=== PATIENT | male | born 1965 | race Caucasian/White ===

== ENCOUNTER 2020-09-10 17:45 | Emergency (ER) | payer MEDICAID, SELFPAY ==
[2020-09-10 19:26] VITALS: BP 126/58; PULSE 82; RESP 22; TEMP 36.8; O2SAT 96; BMI 29.6
--- NOTE | 2020-09-10 19:39 | ED.URI ---
HPI - URI/Sore Throat General Chief Complaint: Upper Respiratory Symptoms Stated Complaint: SOB Time Seen by Provider: 09/10/20 23:41 Source: patient Mode of arrival: ambulatory Limitations: no limitations History of Present Illness HPI Narrative: 55-year-old male currently homeless living in a residential past history of IV drug use on methadone presents with 1 week of upper respiratory symptoms, shortness of breath, productive cough with yellow sputum, intermittent fevers and chills and malaise. He has had a COVID test 2 days ago which was negative. MD elicited complaint: fever, cough and nasal congestion Onset (ago): week(s) (1) Consistency: constant Severity: moderate Description of mucous: yellow Able to tolerate fluids by mouth: Yes Exacerbating factors: exertion and deep breaths Relieving factors: nothing Context: sick contacts Associated symptoms: fever, chills, myalgias, nasal congestion, cough and shortness of breath Treatments prior to arrival: none Related Data Home Medications Medication Instructions Recorded Confirmed ProAir HFA INHALATION BID MDD 2 puffs 09/11/20 albuterol inhaler TID 09/11/20 methadone 40 mg PO 09/11/20 Previous Rx's Medication Instructions Recorded azithromycin [Zithromax Z-Russ] See Rx Instructions .ROUTE 09/11/20 .COMPLEX #6 tab cefuroxime axetil 500 mg PO Q12H 7 Days #14 tab 09/11/20 dexamethasone 6 mg PO DAILY 10 Days #10 tab 09/11/20 Allergies Allergy/AdvReac Type Severity Reaction Status Date / Time No Known Allergies Allergy Unverified 05/01/20 15:09 [No Known Allergies*] Review of Systems Review of Systems: Constitutional: positive Fever, positive Chills, positive fatigue, positive Malaise ENT/Mouth: positive sore throat, positive runny nose Eyes: No Discharge Cardiovascular: No Chest Pain, positive SOB Respiratory: Positive Cough, positive thick yellow Sputum, positive Wheezing, No Smoke Exposure, No Dyspnea Gastrointestinal: No Nausea, No Vomiting, No Diarrhea Genitourinary: no irregular bleeding, No Dysuria, No Urinary Frequency, No Hematuria, No Urinary Incontinence, No Urgency, No Flank Pain, Musculoskeletal: positive Myalgia Skin: No rash Neuro: No Headache Yes all other systems are reviewed and are negative PMFSH Past Medical History Attestation statement: The following information was validated with the patient. Source: old records reviewed Medical History (Updated 09/11/20 @ 01:17 by Moraima Reid NP) Diabetes Social History Social History Alcohol intake: never Smoking Status: Current every day smoker Smoked in Last 30 Days: Yes Use of substances other than those prescribed or required for medical reasons: Yes Substance Use Type: Heroin Last Used Substance: Days (ago) Any prior treatment program specific to substance use: Yes (methadone last dose 09/09/20) Advance Directives: No Advance Directives Information Provided: Yes Physical Exam Vital Signs: Vital Signs: Last Vital Signs Temp 98.8 F 09/11/20 00:00 Pulse 64 09/11/20 01:13 Resp 18 09/11/20 00:00 BP 135/63 09/11/20 00:00 Pulse Ox 95 09/11/20 01:13 Body Mass Index 29.6 Appearance: Alert. Oriented X3. Moderate distress. Afebrile Eyes: Pupils equal, round and reactive to light. ENT: Pharynx normal. Neck: Normal inspection. Neck supple. CVS: Normal heart rate and rhythm. Pulses normal. Respiratory: Mild respiratory distress, tachypneic 26. Breath sounds coarse with expiratory wheezing Abdomen: Soft and nontender. Skin: Skin warm and mild diaphoresis,. Normal skin color. Normal skin turgor. Extremities: No lower extremity edema. Neuro: No motor deficit. No sensory deficit. Course Course Course Narrative: 55-year-old male residing in a residential past history of IV drug use on methadone presents with upper respiratory symptoms. COVID test on Tuesday was negative for acute findings, lung sounds coarse with expiratory wheezing, O2 sat 93% on room air, ambulatory pulse ox 90%. Plan of care is for chest x-ray, CBC, Chem 7, lactic, and cultures. COVID test pending. X-rays negative for acute findings. Patient hypoxic at 89% on room air, order for CT scan as chest x-ray is inconclusive. CT scan shows multiple infiltrates consistent with COVID-19. Nursing notes indicate that patient's O2 sat is 99% on room air, I disagree with this documentation as I have not seen any O2 sat above 95% for this patient. We will discharge patient home with antibiotics and steroids. Patient was advised to return if symptoms got worse. Patient verbalized understanding of and agrees to plan of care discharge home. He will treat himself as he is positive for COVID-19 even though the test was negative, CT scan indicates infiltrates consistent with COVID. MDM - URI/Sore Throat Differential Diagnosis Differential diagnosis: Likely upper respiratory infection, sinusitis, viral infection, bronchitis, influenza and pharyngitis Medical Records Attestation: I reviewed the patient's medical records. Lab Data Attestation: I reviewed the patient's lab results. Result diagrams: 09/10/20 21:00 09/10/20 21:00 Labs: Lab Results 09/10/20 09/10/20 09/10/20 Range/Units 20:33 21:00 21:00 WBC 11.3 H (4.8-10.8) X10*3/uL RBC 5.14 (4.60-5.80) X10*6/uL Hgb 14.2 (14.0-18.0) g/dl Hct 45.3 (42-52) % MCV 88.1 (80-98) fL MCH 27.6 (27.0-33.0) pg MCHC 31.3 (31.0-36.0) g/dl RDW 14.9 (11.0-16.0) % Plt Count 321 (160-400) X10*3/uL MPV 9.4 (9.4-12.4) fL Immature Gran % (Auto) 1.0 H (0.0-0.4) % Neut % (Auto) 70.8 (45-73) % Lymph % (Auto) 19.3 L (20-40) % [place] % (Auto) 8.2 (2-11) % Eos % (Auto) 0.6 (0-4) % Baso % (Auto) 0.1 (0-2) % Lymph # (Auto) 2.2 (1.2-4.9) X10*3/uL [place] # (Auto) 0.9 (0.1-1.2) X10*3/uL Eos # (Auto) 0.1 (0.0-0.4) X10*3/uL Baso # (Auto) 0.0 (0.0-0.2) X10*3/uL Abs Immat Gran (auto) 0.11 H (0.00-0.03) X10*3/uL Absolute Neuts (auto) 8.0 (2.0-8.3) X10*3/uL Absolute Nucleated RBC 0.000 (0.0-0.012) X10*3/uL Nucleated RBC % (auto) 0.0 (0.0-0.2) /100WBC PT 12.1 (10.8-13.0) SEC INR 1.0 (0.9-1.1) APTT 30.8 (24.1-38.0) SEC Sodium (135-145) mmol/L Potassium (3.3-5.1) mmol/l Chloride (96-108) mmol/L Carbon Dioxide (22-29) mmol/L Anion Gap (12-20) BUN (9-16) mg/dL Creatinine (0.5-1.4) mg/dL Estim Creat Clear Calc Estimated GFR Random Glucose (60-115) mg/dL Lactic Acid (0.5-2.0) mmol/L Calcium (8.4-10.2) mg/dL Magnesium (1.6-2.6) mg/dL Ferritin (20-250) ng/mL Total Bilirubin (0.0-1.0) mg/dL Direct Bilirubin (0.0-0.5) mg/dL AST (5-37) U/L ALT (0-40) U/L Alkaline Phosphatase (39-117) U/L Lactate Dehydrogenase (118-273) U/L Troponin I High Sens (<3.5-35.0) ng/L C-Reactive Protein (< or = 0.50) mg/dL Total Protein (6.5-8.0) g/dL Albumin (3.5-5.0) g/dL Lipase (8-78) U/L Procalcitonin ng/mL Coronavirus (PCR) NEGATIVE (Negative) Influenza Type A (PCR) NEGATIVE (Negative) Influenza Type B (PCR) NEGATIVE (Negative) RSV RNA Qual (PCR) NEGATIVE (Negative) 09/10/20 09/10/20 09/10/20 Range/Units 21:00 21:00 21:00 WBC (4.8-10.8) X10*3/uL RBC (4.60-5.80) X10*6/uL Hgb (14.0-18.0) g/dl Hct (42-52) % MCV (80-98) fL MCH (27.0-33.0) pg MCHC (31.0-36.0) g/dl RDW (11.0-16.0) % Plt Count (160-400) X10*3/uL MPV (9.4-12.4) fL Immature Gran % (Auto) (0.0-0.4) % Neut % (Auto) (45-73) % Lymph % (Auto) (20-40) % [place] % (Auto) (2-11) % Eos % (Auto) (0-4) % Baso % (Auto) (0-2) % Lymph # (Auto) (1.2-4.9) X10*3/uL [place] # (Auto) (0.1-1.2) X10*3/uL Eos # (Auto) (0.0-0.4) X10*3/uL Baso # (Auto) (0.0-0.2) X10*3/uL Abs Immat Gran (auto) (0.00-0.03) X10*3/uL Absolute Neuts (auto) (2.0-8.3) X10*3/uL Absolute Nucleated RBC (0.0-0.012) X10*3/uL Nucleated RBC % (auto) (0.0-0.2) /100WBC PT (10.8-13.0) SEC INR (0.9-1.1) APTT (24.1-38.0) SEC Sodium 137 (135-145) mmol/L Potassium 4.4 (3.3-5.1) mmol/l Chloride 97 (96-108) mmol/L Carbon Dioxide 29 (22-29) mmol/L Anion Gap 15 (12-20) BUN 22 H (9-16) mg/dL Creatinine 0.91 (0.5-1.4) mg/dL Estim Creat Clear Calc 87.6 Estimated GFR > 60 Random Glucose 106 (60-115) mg/dL Lactic Acid 1.2 (0.5-2.0) mmol/L Calcium 9.3 (8.4-10.2) mg/dL Magnesium 2.2 (1.6-2.6) mg/dL Ferritin (20-250) ng/mL Total Bilirubin 0.9 (0.0-1.0) mg/dL Direct Bilirubin 0.3 (0.0-0.5) mg/dL AST 15 (5-37) U/L ALT 26 (0-40) U/L Alkaline Phosphatase 81 (39-117) U/L Lactate Dehydrogenase 209 (118-273) U/L Troponin I High Sens 14.5 (<3.5-35.0) ng/L C-Reactive Protein 4.27 H (< or = 0.50) mg/dL Total Protein 7.3 (6.5-8.0) g/dL Albumin 4.0 (3.5-5.0) g/dL Lipase 13 (8-78) U/L Procalcitonin ng/mL Coronavirus (PCR) (Negative) Influenza Type A (PCR) (Negative) Influenza Type B (PCR) (Negative) RSV RNA Qual (PCR) (Negative) 09/10/20 09/10/20 Range/Units 21:00 21:00 WBC (4.8-10.8) X10*3/uL RBC (4.60-5.80) X10*6/uL Hgb (14.0-18.0) g/dl Hct (42-52) % MCV (80-98) fL MCH (27.0-33.0) pg MCHC (31.0-36.0) g/dl RDW (11.0-16.0) % Plt Count (160-400) X10*3/uL MPV (9.4-12.4) fL Immature Gran % (Auto) (0.0-0.4) % Neut % (Auto) (45-73) % Lymph % (Auto) (20-40) % [place] % (Auto) (2-11) % Eos % (Auto) (0-4) % Baso % (Auto) (0-2) % Lymph # (Auto) (1.2-4.9) X10*3/uL [place] # (Auto) (0.1-1.2) X10*3/uL Eos # (Auto) (0.0-0.4) X10*3/uL Baso # (Auto) (0.0-0.2) X10*3/uL Abs Immat Gran (auto) (0.00-0.03) X10*3/uL Absolute Neuts (auto) (2.0-8.3) X10*3/uL Absolute Nucleated RBC (0.0-0.012) X10*3/uL Nucleated RBC % (auto) (0.0-0.2) /100WBC PT (10.8-13.0) SEC INR (0.9-1.1) APTT (24.1-38.0) SEC Sodium (135-145) mmol/L Potassium (3.3-5.1) mmol/l Chloride (96-108) mmol/L Carbon Dioxide (22-29) mmol/L Anion Gap (12-20) BUN (9-16) mg/dL Creatinine (0.5-1.4) mg/dL Estim Creat Clear Calc Estimated GFR Random Glucose (60-115) mg/dL Lactic Acid (0.5-2.0) mmol/L Calcium (8.4-10.2) mg/dL Magnesium (1.6-2.6) mg/dL Ferritin 175 (20-250) ng/mL Total Bilirubin (0.0-1.0) mg/dL Direct Bilirubin (0.0-0.5) mg/dL AST (5-37) U/L ALT (0-40) U/L Alkaline Phosphatase (39-117) U/L Lactate Dehydrogenase (118-273) U/L Troponin I High Sens (<3.5-35.0) ng/L C-Reactive Protein (< or = 0.50) mg/dL Total Protein (6.5-8.0) g/dL Albumin (3.5-5.0) g/dL Lipase (8-78) U/L Procalcitonin 0.07 ng/mL Coronavirus (PCR) (Negative) Influenza Type A (PCR) (Negative) Influenza Type B (PCR) (Negative) RSV RNA Qual (PCR) (Negative) Imaging Data CT scan - chest: Attestation: I personally reviewed and interpreted this imaging study as follows: Radiologist's impression: EXAMINATION: CT CHEST WITH CONTRAST CLINICAL INFORMATION: Hypoxia COMPARISON: Chest x-ray 09/10/2020 TECHNIQUE: Multidetector volumetric CT imaging of the chest was obtained after the administration of 65 mL of Omnipaque 350 intravenous contrast without immediate adverse reactions. Axial MIP volume rendering provided. Sagittal and coronal reformatted images were obtained. This CT examination was performed using dose optimization techniques as appropriate, variously including the following: *Automated exposure control *Adjustment of mA and/or kV according to patient size (this includes techniques or standardized protocols for targeted exams where dose is matched to indication/reason for exam; i.e. extremities or head) *Use of iterative reconstruction technique DLP: 412 mGy-cm FINDINGS: LUNGS: There are multifocal patchy regions of groundglass opacity bilaterally, overall more prominent in the left lung (upper and lower lobe) than on the right. Curvilinear regions of opacity in the right upper and middle lobes have the appearance of atelectasis or scarring. MEDIASTINUM: The visualized thyroid gland is unremarkable. There are subcentimeter mediastinal lymph nodes within the range of normal variation. Cardiac size is within normal limits; no pericardial effusion. There is a fluid density structure abutting the ascending aorta along the right mediastinum measuring approximately 4.5 x 1.6 cm in the axial plane which is suggestive of a pericardial cyst. PLEURA: There is no pleural effusion. No pleural mass or thickening. AXILLA: No lymphadenopathy. UPPER ABDOMEN: Imaged portion of the spleen appears prominent in size. OSSEOUS STRUCTURES: There are changes of diffuse idiopathic skeletal hyperostosis in the spine. CT/CT chest w con IMPRESSION: 1. Multifocal patchy regions of groundglass opacity bilaterally, left lung greater than right, favoring an infectious/inflammatory etiology. 2. Curvilinear opacities in the right upper and middle lobes, favoring atelectasis or scarring. 3. Fluid density structure in the anterior mediastinum measuring up to 4.5 cm, suggestive of a pericardial cyst. Differential considerations include a thymic cyst. Chest x-ray: Attestation: I personally reviewed and interpreted this imaging study as follows: Radiologist's impression: EXAMINATION: XR CHEST CLINICAL INFORMATION: Shortness of breath COMPARISON: None TECHNIQUE: Frontal portable view of the chest was obtained. 7:44 PM FINDINGS: No significant abnormality is noted involving the heart, lungs, mediastinum, bony thorax or soft tissues. XR/XR chest 1V IMPRESSION: Unremarkable examination. ECG Data ECG interpretation date: 09/10/20 Prior ECG tracings: not available for review Interpretation: Not available secondary to system 130 error Discharge Plan Discharge Clinical Impression: COVID-19 Upper respiratory infection Qualifiers: URI type: unspecified URI Qualified Code(s): J06.9 - Acute upper respiratory infection, unspecified Patient Disposition: Home, Self-Care Instructions: COVID-19 (Coronavirus Disease 2019) (ED) Additional Instructions: You were evaluated for upper respiratory symptoms consistent with COVID-19. Your COVID-19 test is negative however your CT scan is positive for COVID-19. Please use azithromycin and Ceftin. These medications are antibiotics and they are used to prevent viral pneumonia from progressing to bacterial pneumonia. Please take dexamethasone 6 mg daily for the next 10 days. Please maintain social isolation per State and Federal guidelines. Your responsibility to maintain these guidelines. Thank you for choosing this emergency department for evaluation. Please follow-up with primary care physician as needed. Return to the emergency department for any new, concerning, or worsening symptoms. Prescriptions: New azithromycin [Zithromax Z-Russ] 250 mg tablet See Rx Instructions .ROUTE .COMPLEX Qty: 6 RF: 0 cefuroxime axetil 500 mg tablet 500 mg PO Q12H 7 Days Qty: 14 RF: 0 dexamethasone 6 mg tablet 6 mg PO DAILY 10 Days Qty: 10 RF: 0 No Action methadone 40 mg PO RF: 0 albuterol TID RF: 0 ProAir HFA inhalation BID MDD 2 puffs RF: 0 Interventions: ED Discharge Assessment Last Done: 09/11/20 01:26 Discharge Date/Time: 09/11/20 01:28
--- NOTE | 2020-09-10 19:40 | ECG_ITS ---
Test Reason : SOB Blood Pressure : / mmHG Vent. Rate : 071 BPM Atrial Rate : 071 BPM P-R Int : 134 ms QRS Dur : 082 ms QT Int : 384 ms P-R-T Axes : 073 -09 042 degrees QTc Int : 417 ms Sinus rhythm with occasional Premature ventricular complexes Nonspecific T wave abnormality Abnormal ECG When compared with ECG of 07-FEB-2018 07:42, Sinus rhythm has replaced Atrial fibrillation Nonspecific T wave abnormality now evident in Lateral leads Referred By: Moraima Reid Electronically Signed By:Robbie Meraz
[2020-09-10 20:00] VITALS: BP 110/57; PULSE 80; RESP 16; TEMP 37; O2SAT 94
[2020-09-10] MEDS: Albuterol Sulfate 90 MCG 8 GM INHALER 2 PUFF INHALE (20:57)
[2020-09-10 21:15] LABS: MANUAL DIFF FLAG NO
[2020-09-10 21:21] LABS: Basophils Percent Auto 0.1 % (0-2); Eosinophils Absolute Auto 0.1 X10*3/uL (0.0-0.4); Eosinophils Percent Auto 0.6 % (0-4); Hematocrit 45.3 % (42-52); Hemoglobin 14.2 g/dl (14.0-18.0); Imm Gran Abs Auto 0.11 X10*3/uL (0.00-0.03); Lymphocytes Absolute Auto 2.2 X10*3/uL (1.2-4.9); Lymphocytes Percent Auto 19.3 % (20-40); Mean Corpuscular HGB Conc 31.3 g/dl (31.0-36.0); Mean Corpuscular Hemoglobin 27.6 pg (27.0-33.0); Mean Corpuscular Volume 88.1 fL (80-98); Mean Platelet Volume 9.4 fL (9.4-12.4); Monocytes Absolute Auto 0.9 X10*3/uL (0.1-1.2); Monocytes Percent Auto 8.2 % (2-11); Neutrophils Percent Auto 70.8 % (45-73); Platelet Count 321 X10*3/uL (160-400); Red Blood Count 5.14 X10*6/uL (4.60-5.80); Red Cell Distribution Width 14.9 % (11.0-16.0); White Blood Count 11.3 X10*3/uL (4.8-10.8)
--- NOTE | 2020-09-10 21:23 | PC.NURSE ---
PATIENT WENT FOR A SHORT WALK 02 SAT STARTED AT 97% AND REMAIN AT 977
--- NOTE | 2020-09-10 21:25 | MHC.MBSS ---
PATIENT WENT FOR A SHORT WALK 02 SAT WAS AT 97 % DURING WALKING AND REMAIN AT 97% ,RN ANDREAS AWARE .
[2020-09-10 21:33] LABS: Prothrombin Time 12.1 SEC (10.8-13.0)
[2020-09-10 21:36] LABS: Partial Thromboplastin Time 30.8 SEC (24.1-38.0)
[2020-09-10 21:37] LABS: Lactic Acid 1.2 mmol/L (0.5-2.0)
[2020-09-10] MEDS: dexAMETHasone sod phosphate 4 MG/ML VIAL 6 MG IVPUSH (21:41)
[2020-09-10 21:46] LABS: Alanine Aminotransferase 26 U/L (0-40); Alkaline Phosphatase 81 U/L (39-117); Anion Gap 15 (12-20); Aspartate Amino Transferase 15 U/L (5-37); Bilirubin Direct 0.3 mg/dL (0.0-0.5); Bilirubin Total 0.9 mg/dL (0.0-1.0); Blood Urea Nitrogen 22 mg/dL (9-16); C Reactive Protein 4.27 mg/dL (< or = 0.50); Calcium 9.3 mg/dL (8.4-10.2); Carbon Dioxide 29 mmol/L (22-29); Chloride 97 mmol/L (96-108); Creatinine Clr Calc Pharmacy 87.6; Estimated Glomerular Filt Rate > 60; Glucose Random 106 mg/dL (60-115); Lactate Dehydrogenase 209 U/L (118-273); Lipase 13 U/L (8-78); Magnesium 2.2 mg/dL (1.6-2.6); Potassium 4.4 mmol/l (3.3-5.1); Sodium 137 mmol/L (135-145); Total Protein 7.3 g/dL (6.5-8.0)
[2020-09-10 21:47] VITALS: BP 131/71; PULSE 71; RESP 16; TEMP 37.1; O2SAT 96
[2020-09-10 21:47] LABS: Troponin-I High Sensitivity 14.5 ng/L (<3.5-35.0)
[2020-09-10 22:01] LABS: Procalcitonin 0.07 ng/mL
[2020-09-10 22:02] LABS: Ferritin 175 ng/mL (20-250)
[2020-09-10 23:04] LABS: Influenza A PCR NEGATIVE (Negative); Influenza B PCR NEGATIVE (Negative); Resp Syncy Virus RNA Qual PCR NEGATIVE (Negative); SARS COV2 PCR INHOUSE NEGATIVE (Negative)
[2020-09-10 23:35] VITALS: O2SAT 89
--- NOTE | 2020-09-10 23:43 | PC.NURSE ---
pt sat when sleepine lower to 88-89%, after a good cough sat improved to 94% on room air. pt has auditable wheezing with a nonprod cough, provider at bedside and ct is being ordered. pt has chest wall pain with coughing.
--- NOTE | 2020-09-10 23:44 | PC.NURSE ---
while pt is talking sat remained at 94% on room air.
[2020-09-11] VITALS: BP 135/63; PULSE 62; PULSE 67; RESP 18; TEMP 37.1; O2SAT 99
--- NOTE | 2020-09-11 00:07 | CT_ITS ---
EXAMINATION: CT CHEST WITH CONTRAST CLINICAL INFORMATION: Hypoxia COMPARISON: Chest x-ray 09/10/2020 TECHNIQUE: Multidetector volumetric CT imaging of the chest was obtained after the administration of 65 mL of Omnipaque 350 intravenous contrast without immediate adverse reactions. Axial MIP volume rendering provided. Sagittal and coronal reformatted images were obtained. This CT examination was performed using dose optimization techniques as appropriate, variously including the following: *Automated exposure control *Adjustment of mA and/or kV according to patient size (this includes techniques or standardized protocols for targeted exams where dose is matched to indication/reason for exam; i.e. extremities or head) *Use of iterative reconstruction technique DLP: 412 mGy-cm FINDINGS: LUNGS: There are multifocal patchy regions of groundglass opacity bilaterally, overall more prominent in the left lung (upper and lower lobe) than on the right. Curvilinear regions of opacity in the right upper and middle lobes have the appearance of atelectasis or scarring. MEDIASTINUM: The visualized thyroid gland is unremarkable. There are subcentimeter mediastinal lymph nodes within the range of normal variation. Cardiac size is within normal limits; no pericardial effusion. There is a fluid density structure abutting the ascending aorta along the right mediastinum measuring approximately 4.5 x 1.6 cm in the axial plane which is suggestive of a pericardial cyst. PLEURA: There is no pleural effusion. No pleural mass or thickening. AXILLA: No lymphadenopathy. UPPER ABDOMEN: Imaged portion of the spleen appears prominent in size. OSSEOUS STRUCTURES: There are changes of diffuse idiopathic skeletal hyperostosis in the spine. CT/CT chest w con IMPRESSION: 1. Multifocal patchy regions of groundglass opacity bilaterally, left lung greater than right, favoring an infectious/inflammatory etiology. 2. Curvilinear opacities in the right upper and middle lobes, favoring atelectasis or scarring. 3. Fluid density structure in the anterior mediastinum measuring up to 4.5 cm, suggestive of a pericardial cyst. Differential considerations include a thymic cyst.
--- NOTE | 2020-09-11 00:32 | PC.NURSE ---
pt returned from ct. taurus well. pt sat 99% on room air on return from rad.
[2020-09-11] MEDS: iohexoL 350 MG/ML 100 ML INFUS..BTL IV (00:43)
[2020-09-11 01:13] VITALS: PULSE 64; O2SAT 95
--- NOTE | 2020-09-11 01:14 | PC.NURSE ---
pt is on room air with his mask on sat 95% and range from 91 to 95%. sat improve with cough and deep breathing. pt has a moist kinza cough. sat have been high at 99% only after his return from ct then returned to 93 then up to 95% provider is aware.
--- NOTE | 2020-09-11 11:36 | MHC.CM.ED ---
Received telephone call from Kimberlee at [facility]. Patient was sent to their skilled nursing by ER. Appears patient is Covid positive. T/W confirmed Covid test is negative. However, chest CT is indicative of Covid and patient will be treated as such. Per Kimberlee, patient will have to go to the homeless skilled nursing in [place]. She will arrange it from her facility but will need clinical information faxed. Info faxed to [phone] at her request.
== END 2020-09-11 01:28 | disposition home or self-care (01) ==
PROVIDERS: Nurse Practitioner Family; Emergency Provider Emergency Medicine; PCP Family Medicine
DX: U07.1 COVID-19 (principal); R06.02 Shortness of breath; R05 Cough; R50.9 Fever, unspecified; F11.90 Opioid use, unspecified, uncomplicated; F17.200 Nicotine dependence, unspecified, uncomplicated; Z71.6 Tobacco abuse counseling
CPT/HCPCS: 0241U; 36415; 71045; 71260; 80048; 80076; 82728; 83605; 83615; 83690; 83735; 84145; 84484; 85025; 85610; 85730; 86140; 87040; 93005; 96374; 99285; J1100; Q9967

== ENCOUNTER 2021-02-05 11:38 | Outpatient (REF) | payer MEDICAID, SELFPAY ==
--- NOTE | ~2021-02-05 | XR_ITS ---
EXAMINATION: XR CHEST CLINICAL INFORMATION: Cough. Chest pain. COMPARISON: Chest x-ray dated 09/10/2020 TECHNIQUE: 2 views of the chest were obtained. FINDINGS: Similar-appearing vague streaky opacities present throughout both lungs. No nely consolidation. No effusion or pneumothorax. Normal heart size and pulmonary vascularity. No acute or suspicious osseous abnormalities. XR/XR chest 2V IMPRESSION: Stable exam demonstrating bilateral vague streaky opacities, particularly within the right upper lobe and left lower lobe.
== END 2021-02-05 11:39 | disposition home or self-care (01) ==
LOC: HO.XRAY 11:38
PROVIDERS: Absent Provider Family Medicine; PCP Family Medicine; Visit Provider Registered Nurse
DX: R07.89 Other chest pain (principal); R05 Cough
CPT/HCPCS: 71046